=== PATIENT | female | born 1970 | race Caucasian/White ===

== ENCOUNTER → 2020-11-18 | Outpatient (CLI) | payer OTHER ==
--- NOTE | 2020-11-18 18:59 | RAD ---
Ultrasound the pelvis transabdominal with transvaginal imaging. HISTORY: Acute pelvic pain transabdominal ultrasound was performed. Uterus measured 9.5 x 3.6 x 5 cm. Endometrium was not thickened. There is no free fluid in the pelvis. Transvaginal imaging was performed for further evaluation. There is a nabothian cyst at the cervix. E ndometrium was 10 measuring 4 mm through the mid body the uterus increasing definite 7 mm at the fund us. A uterine mass is not identified. There is a trace of fluid in the ureter lower uterine segment. Left ovary measured 2.5 x 1.9 x 2.1 cm. There are small follicles in the left ovary. There is flow in the left ovary with color imaging and Doppler. Right ovary measured 2.7 x 1.9 x 2.2. There are folli cles in the right ovary largest measures 1.3 cm with a single septation. There is flow in the right o vary with color imaging and Doppler. IMPRESSION: 1. Small follicles in each ovary. 2. No dominant ovarian mass or cyst. 3. Slight thickening and heterogeneity of the endometrium at the fundus but otherwise within normal l imits. 4. No uterine mass. 5. No free fluid. 6. Normal flow to both ovaries without torsion. Electronically signed by: Silviano Rodriguez MD (11/18/2020 6:57 PM) [id number]
== END ==
LOC: US 17:50
PROVIDERS: ATTEND Family Medicine
DX: R10.2 Pelvic and perineal pain (principal); R93.89 Abnormal findings on diagnostic imaging of other specified body structures
CPT/HCPCS: 76830; 76856